=== PATIENT | male | born 1965 | race Caucasian/White ===

== ENCOUNTER 2017-06-29 09:18 | Emergency (ER) | payer MEDICAID ==
[~2017-06-29] VITALS: Ht 170.2 cm; Wt 77.1 kg
[2017-06-29 09:18] VITALS: BP_SYST 130
--- NOTE | 2017-06-29 09:18 | NUR ---
BROUGHT BACK TO BED #4 WITH [facility]. PLACED IN BED AND TRIAGED. REPORT GIVEN TO ALFREDO
--- NOTE | 2017-06-29 09:18 | NUR ---
BROUGHT IN BY MARYJANE SAHA, PT STATES HE TAKES 33U OF "LANTUS REGULAR INSULIN" AND METHADONE 40 MG, NEEDS TO TAKE IT TODAY BEFORE COURT. HERE FOR MEDICAL CLEARANCE
--- NOTE | 2017-06-29 09:24 | NUR ---
Pt placed to ER chair 3, arrives in custody with officer Leander with cuffs in place. Pt Diabetic and here for accucheck. Takes Lantus Insulin but was unable to take medication r/t being in long term. Denies c/o pain or discomfort.
--- NOTE | 2017-06-29 09:26 | NUR ---
Pt moved to ER bed 04.
--- NOTE | 2017-06-29 09:28 | NUR ---
Dr. Valderrama at bedside to assess pt.
--- NOTE | 2017-06-29 09:30 | NUR ---
# 20 gauge angiocath placed to Right Wrist. Use of asceptic technique. Opsite placed over site. Blood return noted. Blood for lab drawn from site. Flushed with 10 cc of normal saline. No evidence of infiltration noted. Patient tolerated well.
[2017-06-29] MEDS: INSULIN REGULAR, HUMAN 10 UNITS/0.1 ML INJ IVP ONE (09:50)
[2017-06-29] MEDS: NACL 0.9% 1,000 ML IV ONE (09:52)
[2017-06-29 09:57] LABS: EOSINOPHILS # (AUTO) 0.1 K/uL (0.0-0.4); HEMOGLOBIN 13.9 g/dL (14.0-18.0); LYMPHOCYTES # (AUTO) 2.3 K/uL (1.0-5.5); MONOCYTES # (AUTO) 0.7 K/uL (0.0-1.0); NEUTROPHILS # (AUTO) 6.8 K/uL (1.8-7.7); WHITE BLOOD COUNT (AUTO) 9.9 K/uL (4.8-10.8)
[2017-06-29 10:04] LABS: BASOPHILS % (AUTO) 0.2 % (0.0-2.0); EOSINOPHILS % (AUTO) 1.4 % (0.0-4.0); HEMATOCRIT 44.7 % (36-54); LYMPHOCYTES % (AUTO) 23.5 % (20.5-51.5); MEAN CORPUSCULAR HEMOGLOBIN 23 pg (27-31); MEAN CORPUSCULAR HGB CONC 31 % (32-36); MEAN CORPUSCULAR VOLUME 75 fL (79.0-98.0); MONOCYTES % (AUTO) 7.3 % (1.7-9.3); NEUTROPHILS % (AUTO) 67.6 % (40.0-70.0); PLATELET COUNT (AUTO) 241 K/uL (130-430); RED BLOOD CELL COUNT(AUTO) 5.94 MIL/uL (4.2-6.2)
[2017-06-29 10:19] LABS: ALANINE AMINOTRANSFERASE 39 U/L (12-78); ALBUMIN 3.2 g/dL (3.4-4.8); AMYLASE 77 U/L (0-100); ANION GAP 7 (5-15); ASPARTATE AMINOTRANSFERASE 36 U/L (10-37); CALCIUM 10.5 mg/dL (8.4-11.0); CHLORIDE 98 mmol/L (98-107); CREATININE 0.74 mg/dL (0.55-1.30); LIPASE 343 U/L (73-393); POTASSIUM 4.6 mmol/L (3.5-5.1); SODIUM SERUM 131 mmol/L (136-145); TOTAL BILIRUBIN 0.3 mg/dL (0.0-1.0); UREA NITROGEN, BLOOD 14 mg/dL (8-21)
[2017-06-29 10:23] LABS: GFR AFRICAN AMERICAN 142 mL/min (>90); GLUCOSE 421 mg/dL (70-99)
[2017-06-29 10:24] LABS: ACETONE, SERUM NEGATIVE (NEGATIVE)
[2017-06-29] MEDS: HYDROcodone/ACETAMIN 10-325 MG TAB PO ONE (11:11)
[2017-06-29 11:20] VITALS: BP_SYST 136
--- NOTE | 2017-06-29 11:20 | NUR ---
Patient given written and verbal discharge instructions and verbalizes understanding. ER MD discussed with patient the results and treatment provided. Patient in stable condition. ID arm band removed. IV catheter removed intact and dressing applied, no active bleeding. No Rx given. Patient educated on pain management and to follow up with PMD. Pain Scale 6/10. Pt medicated with [place] prior to discharge. Opportunity for questions provided and answered. 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
== END 2017-06-29 11:20 ==
LOC: SED 09:18
DX: E11.65 Type 2 diabetes mellitus with hyperglycemia (principal); Z88.0 Allergy status to penicillin
CPT/HCPCS: 36415; 80053; 82009; 82150; 82962; 83690; 85025; 96361; 96374; 99284; J1815; J7030